=== PATIENT | male | born 1965 | race Caucasian/White ===

== ENCOUNTER 2018-10-27 18:39 | Inpatient (IN) ==
[2018-10-27] MEDS ORDERED: DUONEB (A & A) INH ONE (19:12)
[2018-10-27] MEDS ORDERED: SOLU-MEDROL IV ONE (19:13)
[2018-10-27] MEDS ORDERED: ZOFRAN IV ONE ×2 (19:13→22:00)
[2018-10-27] MEDS ORDERED: MORPHINE IV ONE ×2 (19:29→22:41)
[2018-10-27 19:35] LABS: BASO# 0.04 X1000 (0.0-0.2); BASO% 0.3 % (0.0-0.8); EOS# 0.28 X1000 (0.0-0.7); HEMATOCRIT 47.3 % (42.0-52.0); HEMOGLOBIN 16.1 g/dL (14.0-18.0); IMM GRAN% 0.7 % (0.0-0.5); LYMPH# 3.46 X1000 (1.2-3.4); LYMPH% 24.5 % (20.5-51.1); MCH 27.7 PG (27-31); MCV 81.3 FL (81-99); MONO# 0.83 X1000 (0.11-0.59); MONO% 5.9 % (1.7-9.3); MPV 9.2 FL (7.4-10.4); NEUT# 9.41 X1000 (1.4-6.5); NEUT% 66.6 % (42.2-75.2); PLT 409 X1000 (130-400); RBC 5.82 XMIL (4.7-6.1); RDW 13.4 % (11.5-14.5); WBC 14.12 X1000 (4.8-10.8)
[2018-10-27 19:57] LABS: ALB/GLOB RATIO 1.4; ALBUMIN 4.8 g/dL (3.5-5.0); CALCIUM 9.7 mg/dL (8.8-10.2); CREATININE 1.5 mg/dL (0.7-1.2); TOTAL BILIRUBIN 0.25 mg/dL (0.20-1.00); TOTAL PROTEIN 8.2 g/dL (6.3-8.3)
--- NOTE | 2018-10-27 20:18 | Diag Imaging Result Doc PS360 ---
EXAM: FLAT/UPRIGHT ABD/1 VIEW CHEST 10/27/2018 HISTORY: abdominal pain TECHNIQUE: Flat and upright abdomen with PA chest COMMENT: There is some stool in the right colon and air in the rectum. The stomach is not distended. There is no evidence of organomegaly or mass. No abnormal calcifications are present. There has been cholecystectomy. The inspiration is suboptimal. There are no previous chest radiographs. No evidence of acute pulmonary disease is present. The heart and primary vascularity are within normal limits. IMPRESSION: Mild constipation. Electronically signed by Trey Edmonds 10/27/2018 8:15 PM
[2018-10-27] MEDS ORDERED: NS 1,000 ML IV ONE ×2 (21:10→22:50)
[2018-10-27] MEDS ORDERED: LABETALOL IV ONE ×2 (21:25→22:48)
--- NOTE | 2018-10-27 21:33 | Diag Imaging Result Doc PS360 ---
EXAM: CT ABDOMEN/PELVIS W/O CONTRAST 10/27/2018 HISTORY: abdominal pain, elevated LFT, elevated lipase TECHNIQUE: This exam was performed using automated exposure control, adjustment of mA or kV according to patient size, and/or use of iterative reconstruction technique. COMMENT: There is some groundglass opacity in the azygos esophageal recess region of the right lower lobe. Otherwise there is no evidence of acute disease visualized portion of the chest. There has been cholecystectomy. The pancreas and spleen are unremarkable. The adrenal glands are not enlarged. There is no evidence of left-sided hydronephrosis or stones. There is a small hyperdense cyst anterolaterally in the upper pole. There is hydronephrosis on the right with perinephric stranding and multiple calyceal stones. There is a stone at the ureteropelvic junction measuring 3 mm in diameter. The urinary bladder is unremarkable. There has been previous appendectomy. There is no evidence of acute bony abnormality. IMPRESSION: Right nephrolithiasis, hydronephrosis and proximal ureteral lithiasis. Questionable minimal pneumonia versus fibrosis right lower lobe. Electronically signed by Trey Edmonds 10/27/2018 9:30 PM
[2018-10-27] MEDS ORDERED: PHENERGAN IM ONE (22:48)
[2018-10-27] MEDS ORDERED: ROCEPHIN 1 GM in NS 50 ML IV ONE (22:49)
[2018-10-27] MEDS ORDERED: ZITHROMAX 500 MG/NS 500 MG/250 ML IVPB IV ONE (22:49)
[2018-10-27] MEDS ORDERED: COMPAZINE IV ONE (22:51)
[2018-10-28] MEDS ORDERED: CARDURA PO ONE (00:19)
[2018-10-28] MEDS ORDERED: MORPHINE IV PRN (00:44)
[2018-10-28] MEDS ORDERED: SODIUM CHLORIDE 0.9% INJ ONE (00:44)
[2018-10-28] MEDS: CARDURA PO SCH ×3 (00:51→22:21)
--- NOTE | 2018-10-28 01:59 | PROVIDER DOCUMENTATION ---
This chart was entered by Gurpreet Rizvi Scribe, acting as scribe for Butch Souza MD. HPI-Abdominal Pain/GI Problem - General Chief Complaint: Nausea/Vomiting Stated Complaint: VOMITING Time Seen by Provider: 10/27/18 18:58 Source: patient Allergies/Adverse Reactions: Patient Allergies Allergy/AdvReac Type Severity Reaction Status Date / Time No Known Allergies Allergy Verified 10/27/18 19:05 Home Medications: Home Medication List Medication Instructions Recorded Confirmed Last Taken Type Brompheniramine/Pseudoephed/Dm 5 ml PO Q4-6H PRN PRN 7 Days #120 10/27/18 Unknown Rx [Bromfed Dm Cough Syrup] syrup NS Doxycycline 100 mg PO BID #14 tab 10/27/18 Unknown Rx Hydrocodone/APAP 5 mg/325 mg 1 ea PO Q6H PRN PRN #12 tab 10/27/18 Unknown Rx [Sherman-5] Ondansetron HCl [Zofran] 4 mg PO Q4H PRN PRN #20 tab 10/27/18 Unknown Rx Prednisone 20 mg PO DAILY 6 Days #6 tab 10/27/18 Unknown Rx Tamsulosin [Flomax] 0.4 mg PO DAILY #20 cap 10/27/18 Unknown Rx - History of Present Illness-ABD Nature of Presenting Problems: Pt is a 52 y/o M presents to the ED with fight sided abdominal pain, N/V that began at 1630 today. He reports vomiting X 2. Abdominal Pain Onset Location: reports: RUQ, RLQ Pain Radiation: reports: no radiation Quality of Pain: reports: pressure Severity in ED: reports: moderate Onset/Duration: reports: this afternoon Timing: reports: still present Exposure to sick contacts?: No Modifying Factors: improves with: nothing Associated Symptoms: reports: nausea, vomiting. denies: chest pain, cough, diarrhea, shortness of breath, trouble walking Last BM: this afternoon Dark Stools Present?: reports: none noticed # of Vomiting Episodes: 2 Emesis Description: reports: none Review of Systems - Adult - REVIEW OF SYSTEMS - ADULT Constitutional: denies: chills, fever Eyes: reports: no symptoms reported Ears, Nose, Mouth & Throat: reports: no symptoms reported Cardiovascular: denies: chest pain, edema Respiratory: denies: cough, shortness of breath Gastrointestinal: reports: abdominal pain, nausea, vomiting. denies: constipation, diarrhea Genitourinary: denies: dysuria, discharge Musculoskeletal: denies: back pain, neck pain Integumentary: reports: no symptoms reported Neurological: denies: dizziness/vertigo, headache/migraines Psychiatric: reports: no symptoms reported Endocrine: reports: no symptoms reported Hematologic/Lymphatic: reports: no symptoms reported Allergic/Immunologic: reports: no symptoms reported All Other Systems: Reviewed and Negative Past History - Adult - PAST MEDICAL HISTORY-ADULT Review of Records: reports: Old Records Reviewed, Nursing Assessment Review, Medications Reviewed Endocrine/Immune: reports: thyroid disorder - PRIOR SURGERIES/PROCEDURES Surgical/Procedure History: reports: appendectomy, cholecystectomy - SOCIAL HISTORY Smoking: cigarettes Living Situation: family Physical Exam-General - PHYSICAL EXAM-ADULT Initial Vital Signs Reviewed: Yes - CONSTITUTIONAL General Appearance: appears well, alert, no apparent distress - EYES Eyes: PERRL/EOMI, pink conjunctivae - HEAD, EARS, NOSE, MOUTH & THROAT HENMT: moist mucous membranes, normal ENT inspection, pharynx normal - NECK Neck: non-tender, full range of motion, supple, normal inspection - RESPIRATORY Respiratory: lungs clear, normal breath sounds, no respiratory distress, no accessory muscle use, increased rate - CARDIOVASCULAR Cardiovascular: normal peripheral pulses, regular rate, rhythm - GASTROINTESTINAL (ABDOMEN) Abdominal Exam: normal bowel sounds, soft, tenderness (diffuse) - MUSCULOSKELETAL Back Exam: no CVA tenderness, no vertebral tenderness Extremity: normal range of motion, non-tender, normal gait, normal inspection, no pedal edema - SKIN Integumentary: normal color, normal turgor, warm/dry - NEUROLOGIC Neurologic: grossly normal, no motor/sensory deficits - PSYCHIATRIC Psych/Mental Status: normal mood/affect, normal thought content, normal thought process, oriented x 3 Progress - PLAN OF CARE/RESULTS Progress/Plan/Lab Results: Vital Signs - 8 hr 10/27/18 18:47 Pulse Rate 71 Respiratory Rate 25 H Blood Pressure 218/110 O2 Sat by Pulse Oximetry 98 A/P: nephrolithisis on right side 33 with mild hydronephrosis. mild opacity in left lung, possible pneumonia. will admit for elevated BP and intarctable N/V Result Diagrams: 10/27/18 19:09 10/27/18 19:09 - REASSESSMENT Reassessment #1 Time Reassessed: 19:31 (Pt continues to c/o of abdominal pain and will give morphine for the pain) Status: unchanged - EKG 1 Time of EKG reading by physician:: 19:38 EKG Read and Signed by:: Butch Souza EKG Interpretation (*Must complete 3 of following elements*): Abnormal Rate: 71 Rhythm: NSR QRS: RBB - XRAY 1 XRAY Study: Abdomen Impression: Abnormal (EXAM: FLAT/UPRIGHT ABD/1 VIEW CHEST 10/27/2018 HISTORY: abdominal pain TECHNIQUE: Flat and upright abdomen with PA chest COMMENT: There is some stool in the right colon and air in the rectum. The stomach is not distended. There is no evidence of organomegaly or mass. No abnormal calcifications are present. There has been cholecystectomy. The inspiration is suboptimal. There are no previous chest radiographs. No evidence of acute pulmonary disease is present. The heart and primary vascularity are within normal limits. IMPRESSION: Mild constipation. Electronically signed by Trey Edmonds 10/27/2018 8:15 PM) - CT/MRI 1 CT Study: Abdomen Impression: Abnormal (EXAM: CT ABDOMEN/PELVIS W/O CONTRAST 10/27/2018 HISTORY: abdominal pain, elevated LFT, elevated lipase TECHNIQUE: This exam was performed using automated exposure control, adjustment of mA or kV according to patient size, and/or use of iterative reconstruction technique. COMMENT: There is some groundglass opacity in the azygos esophageal recess region of the right lower lobe. Otherwise there is no evidence of acute disease visualized portion of the chest. There has been cholecystectomy. The pancreas and spleen are unremarkable. The adrenal glands are not enlarged. There is no evidence of left- sided hydronephrosis or stones. There is a small hyperdense cyst anterolaterally in the upper pole. There is hydronephrosis on the right with perinephric stranding and multiple calyceal stones. There is a stone at the ureteropelvic junction measuring 3 mm in diameter. The urinary bladder is unremarkable. There has been previous appendectomy. There is no evidence of acute bony abnormality. IMPRESSION: Right nephrolithiasis, hydronephrosis and proximal ureteral lithiasis. Questionable minimal pneumonia versus fibrosis right lower lobe. Electronically signed by Trey Edmonds 10/27/2018 9:30 PM), See EMR Report - CONSULTS/PCP/HOSPITALIST Notification #1 *Consult/PCP/Hospitalist*: [email or web address] Time Discussed: 00:15 Consult Disposition: Admit Departure - Departure Date of Disposition Decision: 10/28/18 Time of Disposition Decision: 01:58 DIAGNOSIS: Intractable nausea and vomiting, Nephrolithiasis, Elevated blood pressure reading Disposition: ADMITTED INPATIENT Certified Medical Emergency: Emergent Condition: Stable Additional Freetext Instructions: We have examined and treated you today on an emergency basis only. This was not a substitute for, or an effort to provide, complete medical care. In most cases, you must let your doctor check you again. Tell your doctor about any new or lasting problems. We cannot recognize and treat all injuries or illnesses in one Emergency Department visit. If you had special tests, such as X-rays or CT scans, will be reviewed by radiologist and will call you if there are any new suggestions Follow up with primary care provider in 1 to 2 days if no improvement. If you do not have a primary care provider, you need to choose one as soon as possible. Take medicines as prescribed. Monitor for any side effects or adverse events from medications. If any side effect, adverse event or rash develops, or if you suspect any other adverse reaction to the medication, then discontinue the medication immediately and contact clinic /PCP or go to the nearest ER. Narcotic meds / sedative meds instruction - patent advised not to drive, operate any machinery or go into water after taking meds as it may impair mental ability to react to the situation in an appropriate manner. Continue other current medicines. Follow up with PCP within 24-48 hours, or sooner if symptoms worsen or fail to improve. Patient / guardian verbalizes understanding of treatment plan, medication, and side effects and agrees with treatment plan. Patient leaves ER in stable condition and ambulatory state. Return to ER as needed. Discharge instructions reviewed verbally and given to patient in written form. Follow up with primary care provider. Prescriptions: Brompheniramine/Pseudoephed/Dm [Bromfed Dm Cough Syrup] 5 ml PO Q4-6H PRN PRN 7 Days #120 syrup NS PRN Reason: Cough Doxycycline 100 mg PO BID #14 tab Tamsulosin [Flomax] 0.4 mg PO DAILY #20 cap Hydrocodone/APAP 5 mg/325 mg [Sherman-5] 1 ea PO Q6H PRN PRN #12 tab PRN Reason: Pain Prednisone 20 mg PO DAILY 6 Days #6 tab Ondansetron HCl [Zofran] 4 mg PO Q4H PRN PRN #20 tab PRN Reason: Nausea Referrals and Follow-Ups: None,PCP [Primary Care Provider] - - Critical Care Note This patient required my direct & personal management of CC.: No Attestation - Physician/ HEDY Attestation Patient care was provided by Advanced Practice Provider:: No The physician spent face to face time with patient:: Yes Advanced Practice Provider documentation review:: Supervising physician onsite and consulted in the evaluation and care of this patient. The physician did have a face to face encounter with the patient. This chart was documented by the indicated scribe, (Gurpreet Rizvi Scribe) and accurately reflects the services I performed and decisions made by me, Butch Souza MD, as attested by the provider's signature.
[2018-10-28 03:06] LABS: URINE SOURCE CLEAN CATCH
--- NOTE | 2018-10-28 03:07 | HISTORY AND PHYSICAL ---
CHIEF COMPLAINT/HISTORY OF PRESENT ILLNESS: Right flank pain radiating to the epigastrium this afternoon. He has had 3 episodes of vomiting, nonbilious and nonbloody. Denies any fever, but felt clammy and chilly when this occurred. Denies an cardiorespiratory complaints. He says the pain was initially sharp and when it moved to the epigastrium became a kind of heaviness. The pain shifts between the epigastrium and the flank area. He denies any hematuria or dysuria. Denies any altered bowel movements. DATA: His lab work was positive for lipase and further imaging studies were done and showed a right nephrolithiasis, hydronephrosis and proximal ureterolithiasis. There was also a question of possible right pneumonia versus fibrosis. No abnormal findings in the pancreas. ASSESSMENT/PLAN: All in all, I suspect that the patient primarily has obstructive uropathy secondary to right kidney proximal stone obstruction. Will consult Urology to see. Aggressive IV fluid resuscitation. Pain control. For his markedly elevated blood pressure I will go with Cardura which will help relax smooth muscle of ureter while controlling his blood pressure. Other antihypertensives can be considered if this fails to control his blood pressure. Also, an abdominal sonogram will be done to further evaluate the possibility of not only his urological system, but also his biliary tree system. I personally feel that his lipase may be as a consequence of repeated vomiting as opposed to pancreatitis, although the patient's symptoms were central and there is nothing to prevent him from having 2 simultaneous problems. Order intact PTH to see if the patient does not have renal stones and does not have evidence of transient hypercalcemia secondary to hyperparathyroidism which can both cause kidney stones and pancreatitis. I will hold off any treatment for pneumonia at this point in time as he does not have any symptoms suggestive of this. cc: Janak Valentin MD
[2018-10-28 03:14] LABS: BILIRUBIN URINE NEGATIVE (NEGATIVE); BLOOD URINE LARGE (NEGATIVE); COLOR YELLOW; GLUCOSE URINE 70 mg/dL (NEGATIVE); KETONE URINE NEGATIVE (NEGATIVE); LEUKOCYTES URINE NEGATIVE (NEGATIVE); NITRITE URINE NEGATIVE (NEGATIVE); PROTEIN URINE NEGATIVE (NEGATIVE); SP GRAVITY URINE 1.004; TURBIDITY URINE CLEAR (CLEAR); UROBILINOGEN URINE NORMAL (NORMAL)
[2018-10-28 03:15] LABS: UR EPITHELIAL CELLS <10 /HPF (<10); URINE BACTERIA NEGATIVE /HPF; URINE RBC TNTC /HPF (<10); URINE WBC <10 /HPF (<10)
[2018-10-28] MEDS: NS 1,000 ML IV SCH ×3 (05:04→18:39)
[2018-10-28] MEDS: LOVENOX SUBQ SCH (05:08)
[2018-10-28 05:23] LABS: BASO# 0.01 X1000 (0.0-0.2); BASO% 0.1 % (0.0-0.8); HEMATOCRIT 47.7 % (42.0-52.0); HEMOGLOBIN 16.3 g/dL (14.0-18.0); IMM GRAN# 0.05 X1000 (0.0-0.04); IMM GRAN% 0.3 % (0.0-0.5); LYMPH# 0.99 X1000 (1.2-3.4); LYMPH% 6.5 % (20.5-51.1); MCHC 34.2 g/dL (33-37); MONO# 0.19 X1000 (0.11-0.59); MONO% 1.2 % (1.7-9.3); MPV 9.1 FL (7.4-10.4); NEUT# 13.99 X1000 (1.4-6.5); NEUT% 91.9 % (42.2-75.2); PLT 344 X1000 (130-400); RBC 5.82 XMIL (4.7-6.1); RDW 13.5 % (11.5-14.5); WBC 15.23 X1000 (4.8-10.8)
[2018-10-28 05:30] LABS: ALB/GLOB RATIO 1.1; ALBUMIN 4.3 g/dL (3.5-5.0); CALCIUM 9.1 mg/dL (8.8-10.2); CREATININE 1.6 mg/dL (0.7-1.2); POTASSIUM 4.1 mmol/L (3.5-5.1); TOTAL BILIRUBIN 0.29 mg/dL (0.20-1.00); TOTAL PROTEIN 8.2 g/dL (6.3-8.3)
[2018-10-28 05:34] LABS: SEGS 100 % (42-75)
[2018-10-28] MEDS ORDERED: SODIUM CHLORIDE 0.9% 10 ML ONE (06:14)
--- NOTE | 2018-10-28 07:12 | EKG Report ---
Test Performed on : 10/27/2018 7:38:43 PM Test Reason : CP Blood Pressure : / mmHG Vent. Rate : 071 BPM Atrial Rate : 071 BPM P-R Int : 184 ms QRS Dur : 148 ms QT Int : 432 ms P-R-T Axes : 031 010 025 degrees QTc Int : 469 ms Normal sinus rhythm. Right bundle branch block Abnormal ECG No previous ECGs available Unconfirmed Result
--- NOTE | 2018-10-28 07:47 | HISTORY AND PHYSICAL ---
PRIMARY CARE PROVIDER: Dr. Kang in [place], [place]. CHIEF COMPLAINT: Abdominal pain with nausea and vomiting. HISTORY OF PRESENT ILLNESS: Mr. Garcia is a 52-year-old male who presented to the ER this evening with complaints of right flank pain radiating around to his abdomen with nausea and vomiting that started at approximately 4:30 in the afternoon on 10/27/2018. The patient states that the pain began in his right flank radiating around to his abdomen, and he stated across to the periumbilical and epigastric area. The patient did report a few episodes of vomiting. He denied any hematemesis or coffee-grounds emesis. He denies any diarrhea. He states his last bowel movement was earlier in the day on 10/27, and that he denied any hematochezia or melena. The patient states that when his pain did start he felt clammy and chilly though he denies any fever or body aches. He reported that his abdominal pain was sharp in nature. He denies any headache although he states he did have a migraine a few days ago though he does have a history of occasionally having migraines and he states this migraine was previous to his usual migraine symptoms. He denies any chest pain, shortness of breath, or cough. He denies any dysuria or urinary frequency. He denies any pain, tingling or swelling in extremities. The patient states that approximately 3 to 4 weeks ago he did have a cold/possibly upper respiratory infection and did receive some medications to treat this. The patient states since that time his symptoms have subsided and he had not had any further problems. He denies any known history of having any kidney stones in the past. He also denies any history of having gastrointestinal bleeding. He also denies any history of having DVT or pulmonary embolism in the past. The patient states that he is at this time out of some of his medications, and that he has not seen Dr. Ventura in approximately 6 months. Upon evaluation in the ER, the patient was noted according to the triage notes to be complaining of abdominal pain. They stated that in triage he was in quite a bit of pain, and was restless in the bed unable to sit still as though he could not find a comfortable position to get into. The patient states that since receiving pain medication and other medicines in the ER that his symptoms have improved, and he is barely having any pain at this time. His blood pressure was pretty elevated upon arrival though he was in reported pain of 9/10 with a blood pressure 218/110 and heart rate 71. Since being given pain medications, his blood pressure has improved and he did receive a dose of Cardura 4 mg in the ER and 10 mg of labetalol IV. Upon further evaluation in the ER, the patient did have some mild leukocytosis with a white blood cell count of 14.12. Creatinine was slightly elevated at 1.5 with a GFR 49. He did have a mildly elevated AST and ALT with a lipase of 77. Urinalysis did show large amount of blood though was negative for nitrites, leukocytes, white blood cells, or bacteria. I did perform a flat and upright abdomen with 1 view chest which showed some mild constipation. I did also perform a CT of the abdomen and pelvis without contrast which showed a right nephrolithiasis, hydronephrosis and proximal ureteral lithiasis. There was also questionable minimal pneumonia versus fibrosis of the right lower lobe. At this time, the patient will be admitted for further treatment evaluation of his urolithiasis, acute kidney injury, and hypertension. REVIEW OF SYSTEMS: A 14 point review of systems was conducted with the patient. All were negative except for pertinent positives as mentioned above in HPI. PAST MEDICAL HISTORY: 1. Thyroid disease. 2. Reports that he has been told he was borderline. He did have borderline hypertension though is not taking any medications at this present time. PAST SURGICAL HISTORY: 1. Appendectomy. 2. Cholecystectomy. SOCIAL HISTORY: The patient denies any tobacco or illicit drug use. Does report rare occasional alcohol use. 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 FAMILY HISTORY: Positive for his mother having a history of thyroid disease and hypertension. His sister had a history of diabetes mellitus as well. HOME MEDICATIONS: We are awaiting for the patient's home medication list to be updated and verified. The patient did verbally report to me that he takes Synthroid and diclofenac p.r.n. Once his medications have been reconciled, we will address his medication list. DIAGNOSTIC DATA/LABORATORY RESULTS: A white blood cell count is 14.12, hemoglobin 16.1, hematocrit 47.3, and platelet count is 409,000. Sodium 138, potassium 4, chloride 105, serum bicarb of 20, BUN 15, creatinine 1.5 with a GFR 49. Glucose 157, calcium 9.7, and magnesium is 1.9. Total bilirubin is 0.25, AST 35, ALT 49, alkaline phosphatase 96, CK 135, and troponin less than 0.01. Lipase 77. PTH intact and was 38. Urinalysis was obtained via clean catch, was positive for glucose, large blood, and too numerous to count red blood cells. It was negative for nitrites, leukocytes, white blood cells, or bacteria. EKG showed normal sinus rhythm with right bundle branch block at a rate of 71 with a QTc of 469. Flat and upright of the abdomen with 1 view chest showed mild constipation. This was per radiology. CT of the abdomen and pelvis without contrast showed a right nephrolithiasis, hydronephrosis and proximal ureteral lithiasis. There is questionable minimal pneumonia versus fibrosis in the right lower lobe. PHYSICAL EXAMINATION: VITAL SIGNS: Heart rate 102, respirations 20, blood pressure 180/115, and oxygen saturation is 96% on room air. GENERAL: Mr. Garcia is a pleasant 52-year-old male who is resting on the ER stretcher. He was in no acute distress. He was awake, alert, and able to answer questions appropriately. HEENT: Head is atraumatic, normocephalic. Pupils are equal, round, and reactive to light, were 3 mm bilaterally and brisk. Oral mucosa is moist. Oropharynx is clear. NECK: Supple. Trachea midline. No carotid bruits noted upon auscultation bilaterally. No JVD noted. CARDIOVASCULAR: Patient had S1-S2 present. No murmurs, gallops, or rubs appreciated. The patient is slightly tachycardic though has a regular rhythm. PULMONARY: Patient has symmetrical chest expansion bilaterally. Lung sounds are clear to auscultation in bilateral full piña. ABDOMEN: Soft. It does not appear to be distended although the patient did report some mild tenderness upon palpation of his periumbilical and epigastric area. Bowel sounds were present in all 4 quadrants. There were hypoactive. EXTREMITIES: No cyanosis, clubbing, or edema noted. Pulse, motor, and sensory were intact in all extremities. Pedal pulses and radial pulses were 2+ bilaterally. INTEGUMENTARY: The patient's skin is pink, warm, and dry. NEUROLOGICAL: Patient is alert and oriented to person, place, time, and situation. He is able to move all extremities. There are no focal neurological deficits noted IMPRESSION: 1. Urolithiasis. The patient's CT of the abdomen and pelvis without contrast showed a right nephrolithiasis, hydronephrosis and proximal ureterolithiasis. The pain that he was describing as well as his reported presentation in triage does sound like the patient was having abdominal pain related to renal colic. Given the suspicion of possible obstructive uropathy secondary to right proximal kidney stone obstruction, we will place a consult with Urology and we will await their evaluation and further recommendations for management. We will provide the patient with IV fluid hydration and pain control. 2. Nausea and vomiting. This has subsided at this time. We will continue with p.r.n. antiemetics. 3. Acute kidney injury. Unfortunately, we do not have any baseline labs to compare the patient's current renal function to at this time. He does have elevated creatinine of 1.1, BUN of 15 and GFR 49. The patient did have a few episodes of vomiting. He may be slightly volume depleted. We will continue with IV fluid hydration. We will avoid nephrotoxic medications and renally dose medications as necessary. We will continue to follow along. 4. Hypertension. The patient reports he has been told in the past he was borderline hypertensive though he does not take any antihypertensive medications. His blood pressure has improved since being given pain medications in the ER, though it still is quite elevated at this time at 180/115. We have placed orders for Cardura 4 mg p.o. b.i.d., and will closely monitor the patient's response to this with q.4 hour vital signs, and he will be on continuous cardiac telemetry. If his blood pressure is not improved, we can add on additional antihypertensive medications. 5. Constipation. We have placed orders for the patient to receive the MiraLAX p.o. daily. We will monitor his response to this. 6. Possible pneumonia. There was mention on the patient's CT of a question of possible right pneumonia versus fibrosis. The patient at this time does not have any symptoms to suggest this. He denies any shortness of breath, cough, fever, body aches or chills. He does have some mild leukocytosis with a white blood cell count of 14,120 though the patient has been having nausea and vomiting this could be reactive elevation secondary to this. We will hold off on treating him with any antibiotics at this time. We will continue to follow along. 7. Deep vein thrombosis prophylaxis provided with Lovenox 40 mg subcutaneously q.24 hours. 8. The patient did have elevated lipase. This could be secondary to his episodes of nausea and vomiting though to rule out any further complications such as pancreatitis as well as for further evaluation of his neurological system and biliary tree system, we will perform an abdominal ultrasound. The patient also reported that he has thyroid disease though has not taking any Synthroid due to him being out of his medication. He reports the last time he saw his doctor was 6 months ago. We have ordered a TSH. We will await those results and continue to follow. The patient has been placed on the medical floor with telemetry. He will have vital signs q.4 hours. We will do strict intake and output. We will repeat a CBC and CMP in the morning. Further orders and recommendations pending hospital course, diagnostic studies, and physician evaluation. Dictated by ALICIA Palma for Janak Valentin MD cc: Janak Valentin MD
--- NOTE | 2018-10-28 09:55 | Diag Imaging Result Doc PS360 ---
EXAM: US ABDOMEN-COMPLETE - 10/28/2018 HISTORY: R kidney stone, pancreatitis TECHNIQUE: Ultrasound abdomen COMPARISON: None. FINDINGS: There are artifacts from body habitus and bowel gas which limit detail. The liver appears diffusely echodense suggesting fatty infiltration. There is no focal liver lesion identified. Doppler image shows hepatopedal flow in the portal vein. The spleen is unremarkable. There is no ascites seen. The gallbladder is surgically absent. The common bile duct is normal caliber at 5 mm. The pancreas is obscured by artifacts. The bilateral kidneys show no discrete abnormalities. The right renal stones and hydronephrosis which are seen on 10/27/2018 CT renal stone search without discretely identified on this exam, but detail at the right kidney is limited due to artifacts. Visualized portions of abdominal aorta and IVC appear normal caliber. IMPRESSION: Status post cholecystectomy. Normal caliber common bile duct at 5 mm. Apparent fatty infiltration of liver. The pancreas is obscured by artifacts. There is no obvious right hydronephrosis, but detail at the right kidney is limited due to artifacts. Electronically signed by Titus Ascencio 10/28/2018 9:53 AM
[2018-10-28] MEDS: PROTONIX IV SCH (10:22)
[2018-10-28] MEDS: MIRALAX PO SCH (10:26)
--- NOTE | 2018-10-28 15:44 | PROGRESS NOTE ---
DATE: 10/28/2018 SUBJECTIVE: Presented with right flank pain radiating to the epigastrium, 3 episodes of vomiting, nonbilious, nonbloody, but quite a bit of pain, felt clammy and chilled, and suspected primary obstructive uropathy secondary to right kidney proximal stone obstruction. Urology was consulted. He is comfortable. He says somewhere yesterday evening or early this morning it seems like the pain has resolved. He does not describe any pain anywhere at this time. OBJECTIVE: Vital signs: Temp 97.9 degrees, pulse 120, respirations 22, blood pressure 158/104. HEENT: Pupils are equal and round. Lungs: Clear in all lung piña. Cardiovascular: Regular rhythm and rate without murmur or S3. Abdomen: Soft. Skin: Warm and dry. REVIEW OF LABS: White count was 15,230, hematocrit 47, platelet count 344,000. Sodium 139, potassium 4.1, chloride 105, BUN 16, creatinine 1.6. TSH was 10.93. I think we will check a T4 and TSH. He had too numerous to count red blood cells in the urine. Abdominal x-ray from yesterday: Mild constipation. Abdominal and pelvic CT: Right nephrolithiasis, hydronephrosis, proximal urolithiasis, and questionable minimal pneumonia versus fibrosis in the right lower lobe. Abdominal ultrasound done today: Status post cholecystectomy. Normal caliber common bile duct. Fatty infiltration of liver. Pancreas obscured by artifacts. No obvious right hydronephrosis, but detail of the right kidney was limited. ASSESSMENT AND PLAN: 1. He may have passed the stone. We will see what Urology thinks. Will continue fluids. He appeared to have urolithiasis on CAT scan yesterday. 2. Nausea and vomiting is better. 3. Acute kidney injury. I do not have any baseline lab, but continue fluids. We will watch his BUN and creatinine. 4. Hypertension. 5. Constipation. Apparently he has had some relief from this. 6. Possible pneumonia based on the CAT scan. Continue deep venous thrombosis prophylaxis. REVIEW OF HIS ORDERS: He is on Cardura 4 mg b.i.d. He is on a Protonix 40 mg a day, MiraLAX 17 g daily. Continue his normal saline. cc: Alexander Najera MD
[2018-10-28] MEDS: ROCEPHIN 1 GM in NS 50 ML IV SCH (16:40)
--- NOTE | 2018-10-28 19:41 | CONSULTATION ---
DATE OF CONSULTATION: 10/28/2018 ATTENDING AND REFERRING PHYSICIAN: Hospitalist. HISTORY OF PRESENT ILLNESS: This 52-year-old male developed acute onset of right flank pain associated with nausea and vomiting. He states he never had anything like this previously. A CT stone search revealed a 3 mm stone in the right proximal ureter with mild obstruction. Also noted were several other small renal stones. There were no left-sided stones noted. The patient denies any previous urologic surgery. He has had no hematuria. He has no problems with urinary infections. He has no family history of kidney stones. PAST MEDICAL HISTORY: 1. Hypertension. 2. Hypothyroidism. CURRENT MEDICATIONS: Documented on the chart. PAST SURGICAL HISTORY: 1. Appendectomy. 2. Cholecystectomy. SOCIAL HISTORY: No tobacco use. Rare alcohol use. ALLERGIES: No known drug allergies. REVIEW OF SYSTEMS: He states he does not usually take any kind of medication for his blood pressure. He denies any problems with diabetes, strokes, seizures, pulmonary, or bowel problems. He has no chest pains. PHYSICAL EXAMINATION: General: An obese, age apparent, normally developed, white male, oriented in all ways and cooperative. HEENT: Normal for age. Lungs: Clear. Cardiovascular: Regular rate and rhythm. Abdomen: Obese, soft, nontender. No hepatosplenomegaly or mass. Normal bowel sounds. Minimal tenderness in the right flank, but no guarding or rebound. : Uncircumcised male. Both testes are down. Scrotal exam is normal. No inguinal hernias. Rectal: Deferred until surgery. Extremities: No clubbing, cyanosis, or edema. Neurologic: No focal deficits. LABORATORY EVALUATION: Laboratory evaluation early this morning had a white count of 15.23, hemoglobin of 16.3, hematocrit of 47.7, and platelets of 344,000. Serum electrolytes are normal. BUN 16, creatinine 1.6. Urinalysis had too numerous to count red cells per high-powered field and negative bacteria. CT renal stone search is as noted in the HPI. IMPRESSION: 1. Right renal stones. 2. Right proximal ureteral stone with mild hydronephrosis. 3. Right flank pain that apparently has resolved. PLAN: 1. Discussed with patient the stone could have moved to a wider part of the ureter allowing the urine to pass with relief of the pain. 2. Discussed with the patient that a 3 mm stone has a very high chance of passing spontaneously. 3. The patient states he wants to do anything to ensure that the pain he had last night does not recur. 4. Recommend cystoscopic examination, and if the stone is not in the bladder, a right ureteroscopy with laser lithotripsy and basket extraction with placement of a right double-J stent, if needed. The planned procedure, benefits versus risks, possible complications, including, but not limited to, bleeding, infection, not finding a stone, finding a stone and not being able to remove it, and need for further surgery was discussed. He seems to understand and desires to proceed. We will have the patient strain all the urine and if he catches the stone, we can cancel the procedure. cc: Jackson Claudio MD MTDD
[2018-10-28] MEDS: TYLENOL PO PRN (22:20)
[2018-10-28] MEDS: ZOFRAN IV PRN (22:21)
[2018-10-28] MEDS ORDERED: ULTRAM PO ONE ×2 (22:53→22:59)
[2018-10-29] MEDS: ZOFRAN IV PRN (03:29)
[2018-10-29] MEDS: LOVENOX SUBQ SCH (03:37)
[2018-10-29] MEDS: NS 1,000 ML IV SCH ×5 (03:41→17:00)
[2018-10-29 07:43] LABS: ALB/GLOB RATIO 1.2; ALBUMIN 4.2 g/dL (3.5-5.0); CALCIUM 8.7 mg/dL (8.8-10.2); CREATININE 1.8 mg/dL (0.7-1.2); MAGNESIUM 1.8 mg/dL (1.5-2.7); POTASSIUM 3.7 mmol/L (3.5-5.1); TOTAL BILIRUBIN 0.47 mg/dL (0.20-1.00); TOTAL PROTEIN 7.7 g/dL (6.3-8.3)
[2018-10-29 07:54] LABS: FREE T4 0.73 ng/dL (0.93-1.70); TSH 10.24 uIUmL (0.27-4.20)
[2018-10-29] MEDS ORDERED: DIPRIVAN 1% ONE (08:59)
[2018-10-29] MEDS ORDERED: XYLOCAINE-MPF 2% ONE (09:00)
[2018-10-29] MEDS ORDERED: ZOFRAN ONE (09:42)
[2018-10-29] MEDS ORDERED: DECADRON ONE (09:42)
--- NOTE | 2018-10-29 10:45 | OPERATIVE NOTE ---
PROCEDURE DATE: 10/29/2018 SURGEON: Jackson Claudio MD. PREOPERATIVE DIAGNOSIS: Right renal stones and a 3 mm right proximal ureteral stone with continued right flank pain. POSTOPERATIVE DIAGNOSIS: Right renal stones and a 3 mm right proximal ureteral stone with continued right flank pain with spontaneously passed right ureteral stone. ANESTHESIA: General via laryngeal mask. FINDINGS: Cystoscopic exam - urethra-greater than 21 [place], without stricture. Prostate - coapting lateral lobes, elevated bladder neck, length approximately 4 cm. Bladder - normal ureteral orifices bilaterally. Grade 1-2 trabeculations. No papillary lesions. No diverticula. Right ureteroscopy reveals a normal right ureter with no stone seen. The scope was not able to be advanced to the UPJ but over 3[address] area and no stone was seen. Rectal exam reveals a prostate of about 50 g, smooth, and symmetric. INDICATION FOR PROCEDURE: This 52-year-old male developed severe right flank pain. Evaluation revealed several small right renal stones and a 3 mm stone in the right proximal ureter with mild to moderate obstruction. The patient strained his urine and did not catch the stone and was having continued pain. DESCRIPTION OF PROCEDURE: After informed consent was obtained from the patient and him receiving IV antibiotics, he was taken the main OR cystoscopy room, placed in the supine position. General anesthesia via laryngeal was achieved. He was then placed in the low lithotomy position and prepped and draped in the usual sterile fashion for cystoscopic exam. A 21-[place] sheath cystoscope was passed through patient's urethra, prostate, and bladder findings with noted above. A 0.035 ZIPwire was passed through the cystoscope, engaged right ureteral orifice, advanced up into the kidney without difficulty. The cystoscope was removed leaving the ZIPwire in place to act as a safety wire. A 7-[place] Storz semi-rigid ureteroscope was advanced through the patient's urethra, prostate, and into the bladder. A 0.035 sensor wire was passed through the ureteroscope and into the ureter. The ureteroscope was advanced over the Sensor wire, but beneath the ZIPwire and was slowly advanced all the way to the limits of the scope. No stone was visualized. The ureteroscope with Sensor wire was removed. A 6-[place], 28 cm double-J stent was passed over the ZIPwire up into the kidney. The renal end was verified by fluoroscopic exam, bladder end directly visualized. The bladder was drained. Cystoscope was removed. Stent removal string securely taped to the penile shaft. Rectal exam performed. He tolerated the procedure well. ESTIMATED BLOOD LOSS: 0. DISPOSITION: He was taken to recovery room in good condition. cc: Jackson Claudio MD
[2018-10-29] MEDS: CARDURA PO SCH ×2 (11:18→20:39)
[2018-10-29] MEDS: MIRALAX PO SCH (11:18)
[2018-10-29] MEDS: PROTONIX IV SCH (11:18)
[2018-10-29] MEDS ORDERED: DITROPAN PO PRN (11:19)
--- NOTE | 2018-10-29 12:30 | Diag Imaging Result Doc PS360 ---
EXAM: CHEST-PORTABLE HISTORY: pneumonia TECHNIQUE: Portable upright chest COMPARISON: 10/27/2018 FINDINGS: Poor inspiratory effort. The heart is not enlarged. The vessels are not distended. There are no infiltrates. No effusion identified. IMPRESSION: No definite pneumonia. Electronically signed by Amrik Kevin 10/29/2018 12:28 PM
--- NOTE | 2018-10-29 13:27 | Diag Imaging Result Doc PS360 ---
EXAM: FLUROSCOPY CYSTO HISTORY: RT.SIDE PAIN,RT.SIDE STENT TECHNIQUE: 12 films submitted COMPARISON: None. FINDINGS: Early film show a wire placed in the right ureter. A catheter was placed over this wire. The wire was then removed. IMPRESSION: Right ureteral stent placed. Electronically signed by Amrik Kevin 10/29/2018 1:24 PM
--- NOTE | 2018-10-29 16:48 | PROGRESS NOTE ---
DATE: 10/29/2018 SUBJECTIVE: Mr. Garcia feels better. No further pain. He has no problem with urination or his bowels. OBJECTIVE: Vital signs: Temp 97.4 degrees, pulse 115, respirations 22, blood pressure 158/96. HEENT: Pupils are equal and round. Lungs: Clear in all lung piña. Cardiovascular: Regular rhythm and rate without murmur or S3. Abdomen: Soft. Skin: Warm and dry. ASSESSMENT AND PLAN: Dr. Mandeep Claudio found some right renal stone, 3 mm right proximal ureter stone with continued right flank pain. So, my understanding is he spontaneous passed the right ureteral stone. So, he seems to be doing better. I will discuss with Dr. Mandeep Claudio whether he thinks he can go home. Note, he had no definite pneumonia on chest x-ray. Abdominal ultrasound, status post cholecystectomy, normal caliber bile duct 5 mm. So I will let him go home. His discharge medications, he was taking some cough syrup. He is on doxycycline I think 100 mg twice a day; I think he can stop that. He had hydrocodone at home which he can use as needed. Encourage weight reduction. Encourage him to drink quite a bit of fluid and to follow up with his primary care. cc: Alexander Najera MD
[2018-10-29] MEDS: ROCEPHIN 1 GM in NS 50 ML IV SCH (16:56)
--- NOTE | 2018-10-29 17:00 | DISCHARGE SUMMARY ---
ADMISSION DATE: 10/28/2018 DISCHARGE DATE: 10/29/2018 HISTORY: Presented with abdominal pain, nausea, and vomiting. Mr. Garcia is a 52-year-old male who presented to the emergency room the evening of 10/28/2018 with complaints of flank pain radiating around to his abdomen, nausea, and vomiting which started about 4:30 in the afternoon on 10/27/2018. The patient states that he began to have flank pain which radiated to his abdomen, across his periumbilical and epigastric area. Had a few episodes of vomiting. Denied any hematemesis, coffee-grounds emesis. Denied any diarrhea. States that last bowel movement was earlier on 10/27. Denied any hematochezia or melena. States that when his pain did start he felt clammy and chilly. Denied any fever, body aches. Reported abdominal pain was sharp in nature. Denied any headache. States he did have migraines a few days ago. Has a history of occasional migraines and unusual migraine symptoms. He denies any chest pain, shortness of breath, cough. Denied any dysuria or urinary frequency. Denied pain, tingling, swelling in extremities. The patient states approximately 3 or 4 weeks ago he had a cold, upper respiratory infection. Symptoms had subsided without any further problems. Upon evaluation in the emergency room he had pretty severe pain, very restless. CT of the abdomen and pelvis showed right nephrolithiasis, hydronephrosis, proximal ureteral lithiasis, and questionable infiltrate in his right lower lobe. PAST MEDICAL HISTORY: 1. Thyroid disease. 2. Reports he has been told he has borderline hypertension. PAST SURGICAL HISTORY: 1. Appendectomy. 2. Cholecystectomy. HOSPITAL COURSE: So admitted with urolithiasis and renal colic. Continued to give him IV antibiotics and gave him some fluid. Also had some nausea and vomiting. This seemed to resolve. It appeared that he passed the stone and had no further pain. White count was 15,230, hematocrit 47, platelet count 344,000. Sodium 144, potassium 3.7, chloride 105, BUN 20, creatinine 1.8, previous was 1.6. Abdominal and pelvic CT, once again right nephrolithiasis, hydronephrosis, proximal ureteral lithiasis. Dr. Mandeep Claudio took him for retrograde cystoscopy. He had a right renal stone, 3 mm right proximal ureteral stone with continued right flank pain, but he spontaneously must have passed that stone and so it looked clear. The patient felt much better and was wanting to go home and so plan to discharge patient home on his usual medications. Encourage him to drink plenty of fluids and to get follow up with his primary care. Note, he had a 28 cm double J stent passed over into the right ureter and seemed to tolerate this well. I think the plan is he will be discharged in the morning and go home on his current medications. Review of his orders: Fluids going at 175 mL an hour. He is on ceftriaxone 1 g q.24 hours. cc: Alexander Najera MD
[2018-10-29] MEDS: TYLENOL PO PRN (21:22)
[2018-10-30] MEDS: NS 1,000 ML IV SCH ×2 (01:28→08:33)
[2018-10-30] MEDS: LOVENOX SUBQ SCH (01:29)
[2018-10-30] MEDS: CARDURA PO SCH (08:32)
[2018-10-30] MEDS: PROTONIX IV SCH (08:32)
[2018-10-30] MEDS: MIRALAX PO SCH (08:32)
[2018-10-30] MEDS: TYLENOL PO PRN (08:32)
--- NOTE | 2018-10-30 13:50 | DISCHARGE SUMMARY ---
ADMISSION DATE: 10/28/2018 DISCHARGE DATE: DISCHARGE ADDENDUM: Patient ready to go home. No complications. Medications set up. Please see discharge summary I did yesterday. Discharge him home. cc: Alexander Najera MD
[2018-10-30 13:59] VITALS: BP 157/97
== END 2018-10-30 14:50 | disposition home or self-care (01) | DRG 661 ==
LOC: ED 18:39 → 3N 10-28 03:33 → SUATTDRO 10-28 03:33
PROVIDERS: ATTEND Emergency Medicine
CPT/HCPCS: 71010; 71045; 74022; 74176; 76000; 76700; 80053; 80061; 81001; 82550; 82607; 82728; 82746; 82948; 83690; 83721; 83735; 83970; 84439; 84443; 84484; 85025; 93005; 94640; 94761; 96361; 96365; 96367; 96372; 96375; 96376; 99285; A9270; C2617; C9113; J0456; J0696; J0780; J1100; J1650; J2270; J2405; J2550; J2930; J7030; S0164; XXXXX